=== PATIENT | male | born 1985 | race Caucasian/White ===

== ENCOUNTER 2017-11-01 14:37 | Inpatient (IN) | payer BC, SELFPAY ==
[~2017-11-01] VITALS: Ht 175.3 cm; Wt 68.0 kg
[2017-11-01 14:43] VITALS: BP 121/84
[2017-11-01] MEDS ORDERED: VITAMIN B-12500 MCG PO (14:47)
[2017-11-01] MEDS ORDERED: MELATONIN1 MG PO (14:48)
[2017-11-01] MEDS ORDERED: VITAMINC500 PO (14:48)
[2017-11-01 15:00] LABS: ABSOLUTE BASOPHILS 0.1 thou/uL (0.0-0.2); ABSOLUTE EOSINOPHILS 0.7 thou/uL (0.0-0.7); ABSOLUTE MONOCYTES 0.8 thou/uL (0.0-1.2); ABSOLUTE NEUTROPHILS 6.6 thou/uL (1.6-8.1); BASOPHILS 0.6 %; EOSINOPHILS 6.2 %; HEMATOCRIT 44.3 % (42.0-52.0); HEMOGLOBIN 15.2 gm/dL (14.0-18.0); LYMPHOCYTES 26.8 %; MCH 33.7 pg (26.0-34.0); MCHC 34.4 g/dL (28.0-37.0); MCV 97.7 fL (80.0-100.0); MPV 9.6 fl. (7.2-11.1); NUCLEATED RBCS 0 /100WBC; PLATELET COUNT* 227 thou/uL (150-400); POLYS 59.4 %; RBC 4.53 mil/uL (4.50-6.00); RDW-CV 12.5 % (10.5-14.5); WBC 11.1 thou/uL (4.0-11.0)
[2017-11-01 15:08] LABS: ANION GAP 8 mmol/L (7-16); BUN 15 mg/dL (7-18); CALCIUM 8.4 mg/dL (8.5-10.1); CHLORIDE 104 mmol/L (98-107); CO2 28 mmol/L (21-32); CREATININE 0.9 mg/dL (0.6-1.3); GLUCOSE 94 mg/dL (70-99); SODIUM 140 mmol/L (136-145)
[2017-11-01 15:13] LABS: APTT 27.1 Seconds (25.0-31.3); INR 1.1; PROTIME 10.6 Seconds (9.20-11.50)
[2017-11-01 15:15] LABS: ALBUMIN 3.9 g/dL (3.4-5.0); ALKALINE PHOSPHATASE 85 U/L (46-116); SGOT 17 U/L (15-37); SGPT 27 U/L (30-65); TOTAL BILIRUBIN 1.2 mg/dL (<0.1-1.0); TROPONIN-I LEVEL <0.06 ng/mL (<0.06)
[2017-11-01 18:27] VITALS: BP 117/81
[2017-11-01 18:45] VITALS: BP 115/82
[2017-11-01 20:00] VITALS: BP 128/60
[2017-11-02 00:56] VITALS: BP 108/40
[2017-11-02 04:37] VITALS: BP 124/44
[2017-11-02 04:38] VITALS: BP 97/55
[2017-11-02 11:30] VITALS: BP 97/65
--- NOTE | 2017-11-02 11:38 | NUR ---
INSTRUCTED PATIENT ON SMOKING CESSATION.
--- NOTE | 2017-11-02 14:20 | NUR ---
IV AND TELE DISCONTINUED.
--- NOTE | 2017-11-02 14:35 | NUR ---
PT UNDERSTANDS ALL FOLLOW UP ORDERS. ALLL QUESTIONS ANSWERED.
[2017-11-02 14:37] VITALS: BP 97/65
--- NOTE | 2017-11-02 17:07 | EKG ---
[place] [address] ELECTROCARDIOGRAM REPORT Name: CORRIE SERNA Room: [address] IN [facility]#: [id number] Admission: 11/01/17 Attend Phys: Wilver Steele Discharge: 11/02/17 Date of : 87 Report #: [id number] THIS REPORT FOR: //name// [facility] ED Test Date: 2017-11-01 Test Time: 14:58:48 Pat Name: CORRIE SERNA Department: Room: Gender: Tack Coverer: Raymundo CRUZ : 1985 Requested By: Marleni Yadav Order Number: [id number] MD: Efrain Magallon Measurements Intervals [place] Rate: 59 P: 53 NH: 174 QRS: 79 QRSD: 84 T: 68 QT: 368 QTc: 365 Interpretive Statements Sinus rhythm ST elev, probable normal early repol pattern No previous ECG available for comparison Electronically Signed On 11-02-2017 17:07:09 CDT by Efrain Magallon [email or web address] <ELECTRONICALLY SIGNED> By: Efrain Magallon MD, FACC 11/02/17 1707 [id number] [id number] Efrain Magallon MD, [facility] /EPI
== END 2017-11-02 15:00 | disposition home or self-care (01) | DRG 201 ==
LOC: M.ERS 14:37 → M.2W 16:35 → M.TBA-ER 16:35 → M.2W 18:31
PROVIDERS: Nurse Practitioner Family; ADMIT Internal Medicine
DX: J93.9 Pneumothorax, unspecified (principal); F17.210 Nicotine dependence, cigarettes, uncomplicated; Z79.899 Other long term (current) drug therapy

== ENCOUNTER → 2017-11-29 | Outpatient (CLI) | payer BC ==
[~2017-11-29] MED LIST: MELATONIN1 MG PO; VITAMIN B-12500 MCG PO; VITAMINC500 PO
== END ==
LOC: M.RAD 10:30
DX: J93.11 Primary spontaneous pneumothorax (principal)

== ENCOUNTER 2020-04-16 16:25 | Emergency (ER) | payer BC ==
[~2020-04-16] VITALS: Ht 170.2 cm; Wt 68.0 kg
[2020-04-16 17:14] VITALS: BP 130/70
== END 2020-04-16 17:15 | disposition home or self-care (01) ==
LOC: M.ERS 16:25
DX: R06.00 Dyspnea, unspecified (principal); R07.89 Other chest pain